=== PATIENT | female | born 1990 | race Caucasian/White ===

== ENCOUNTER 2018-04-01 11:11 | Emergency (ER) | payer OTHER ==
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
[2018-04-01 12:00] VITALS: BP 125/78
== END 2018-04-01 12:00 | disposition home or self-care (01) ==
DX: S00.83XA Contusion of other part of head, initial encounter (principal); V18.0XXA Pedal cycle driver injured in noncollision transport accident in nontraffic accident, initial encounter; Y92.480 Sidewalk as the place of occurrence of the external cause